=== PATIENT | male | born 1965 | race African-American/Black ===

== ENCOUNTER 2017-07-31 18:54 | Emergency (ER) | payer MEDICAID ==
--- NOTE | 2017-07-31 18:57 | EDPHY ---
H & P HPI/ROS: CHIEF COMPLAINT: Seizure HISTORY OF PRESENT ILLNESS: The patient is a 52 y/o male arriving via EMS after a witnessed seizure. Six months ago he had a seizure in [place] while shopping. Per his report, the local hospital gave him fluids and released him. Today he was in [place] with a coworker when they stopped for food at [employer]. He left [employer] with his coffee a couple minutes before his coworker. When his coworker walked out, he found him holding his coffee and dramatically shaking. He then fell to the ground and crawled about 10 feet before lying face down and continuing to shake. Police also witnessed him crawling and shaking. When he was turned over he had saliva and coffee coming out of his mouth. EMS notes he was postictal when they arrived. He has no memory of the episode. He denies any associated symptoms. He denies history of seizure disorder, cardiac issues, neurologic conditions, illicit drug use. At the time of my 2nd interview with the patient he tells me that he drinks 3-4 beers daily. REVIEW OF SYSTEMS: A ten point review of systems was performed and is negative with the exception of the items mentioned in the HPI. Past medical history: 1. Seizure 6 months ago Past surgical history: Denies Family history: Non-contributory Social history: Works in [employer], lives in [place], General Appearance: Alert. Vital signs reviewed. Blood pressure 172/105, heart rate 111 at arrival. Head: Normocephalic atraumatic. Eyes: Pupils equal and round, no conjunctival injection, no discharge. Anicteric. ENT, Mouth: Mucous membranes are moist, no oropharyngeal erythema or edema. No tongue injury. Neck: No lymphadenopathy, supple. Nontender to palpation of the cervical spine. Respiratory: Lungs are clear to auscultation; no wheezes, rales, or rhonchi. Cardiovascular: Regular rate and rhythm; no murmur, rub, or gallop. Not tachycardic at time of my exam. Gastrointestinal: Abdomen is soft and nontender, no masses or organomegaly, bowel sounds normal. Skin: Warm and dry, no rashes on exposed skin, normal color. Back: Nontender to palpation over the thoracolumbar spine. No CVAT. Extremities: No lower extremity edema, no calf tenderness or swelling. Neurological: He is noted to be tremulous at the time of my exam. Alert and oriented. Moving all four extremities easily and equally. Cranial nerves II through XII are examined and are intact (visual acuity not tested). Strength is 5 over 5 bilaterally with testing of all major motor groups. Sensation is intact to light touch over all 4 extremities. [id number] is performed accurately. Psychiatric: Normal affect. Constitutional: Initial Vital Signs Temperature (C) 36.4 C 07/31/17 19:00 Heart Rate 111 H 07/31/17 19:00 Respiratory Rate 16 07/31/17 19:00 Blood Pressure 172/105 H 07/31/17 19:00 O2 Sat (%) 97 07/31/17 19:00 O2 Delivery Mode Room Air Allergies/Adverse Reactions: No Known Allergies Allergy (Unverified 07/31/17 21:34) Home Medications: Medication Instructions Recorded levETIRAcetam [Keppra 500 mg (*)] 500 mg PO BID #60 tab 07/31/17 Medical Decision Making ED Course/Re-evaluation: Patient re-examined at 8:00 p.m.. At that time he is tremulous and hypertensive , mildly tachycardic with heart rate in the high 90s low 100s. He tells me that he regularly drinks 3-4 beers daily. I now wonder if this is an alcohol withdrawal seizure. He states that he has not had any alcohol since last night. He does not consider himself a problem drinker. Will give Ativan 1 mg. Also IV fluids. Patient re-evaluated at 9:00 p.m.. He is no longer tremulous. His blood pressure is still high, but improved, 160/100. His heart rate is in the 80s. He is resting comfortably and states that he feels fine. I spoke with him again about his alcohol consumption and he was surprised to learn that I thought it might be an issue. He lives in the [place] area and will most likely be following up there. He is given neurology referral in [place] and follow up [facility] is recommended. He was given a dose of IV Keppra in the ED and RX for oral Keppra. He understands that he should not drive until cleared to do so by his physician(s). Differential Diagnosis: Seizure including but not limited to electrolyte abnormality, alcohol withdrawal , medication noncompliance, head injury, and breakthrough seizure. - Data Points Laboratory Results: Laboratory Results 07/31/17 19:00 07/31/17 19:00 Medications Given: Discontinued Medications Sodium Chloride (Ns) 1,000 mls @ 0 mls/hr IV EDNOW ONE; Wide Open PRN Reason: Protocol Stop: 07/31/17 20:07 Last Admin: 07/31/17 20:22 Dose: 1,000 mls Levetiracetam (Keppra) 500 mg PO EDNOW ONE Stop: 07/31/17 21:31 Last Admin: 07/31/17 21:35 Dose: 500 mg Lorazepam (Ativan Injection) 1 mg IVP EDNOW ONE Stop: 07/31/17 20:07 Last Admin: 07/31/17 20:21 Dose: 1 mg Departure - Departure Disposition: Home, Routine, Self-Care Clinical Impression: Seizure Condition: Good Instructions: Alcohol Withdrawal (ED), New-Onset Seizure in Adults (ED) Additional Instructions: I am urging you to follow up with a neurologist soon as possible. I am referring you to the on-call neurologist at [facility] but I understand that you might want to seek out a neurologist in [place], where you live. There is a neurologist connected with [facility] at the [facility]. You should contact your primary care doctor and let him or her know about andreas's seizure. Please make sure that your doctor is aware that this is the 2nd time you have had a seizure. You should not drive a car or engage in any behaviors that could be dangerous if you had another seizure--such as diving, swimming alone. Your doctor will need to clear you for driving. I am starting you on an anti seizure medication called Keppra. You take this twice daily. She is not start this medication and abruptly discontinue it. It is imperative that you see a neurologist to have your seizures further evaluated (you will probably need an MRI of your brain, you had a CT of your brain done tonight and an EEG to study the electrical activity of your brain. Referrals: Parvez Sosa MD [Medical Doctor] - As per Instructions Prescriptions: levETIRAcetam [Keppra 500 mg (*)] 500 mg PO BID #60 tab Report Scribed for: Elizabeth Robin Report Scribed by: Audelia Cifuentes Date of Report: 07/31/17 Time of Report: 19:23 Physician Review and Approval Statement: 07/31/17 18:57 Portions of this note were transcribed by the medical lab technologist. I, Dr. Elizabeth Robin, personally performed the history, physical exam, and medical decision- making; and confirmed the accuracy of the information in the transcribed note.
[2017-07-31 19:04] VITALS: TEMP 97.5
[2017-07-31 19:12] LABS: PLATELET COUNT 349 10^3/uL (150-400)
[2017-07-31] MEDS ORDERED: LORazepam 2 MG/ML INJ IVP ONE (20:06)
[2017-07-31] MEDS ORDERED: NS 1,000 ML IV ONE (20:06)
[2017-07-31] MEDS ORDERED: levETIRAcetam 500 MG TAB PO ONE (21:30)
[2017-07-31 21:51] VITALS: BP 156/99; PULSE 93; RESP 18; O2SAT 95
== END 2017-07-31 21:53 | disposition home or self-care (01) ==
DX: G40.909 Epilepsy, unspecified, not intractable, without status epilepticus (principal); E86.9 Volume depletion, unspecified
CPT/HCPCS: 96374; G0480; J2060